=== PATIENT | female | born 1960 | race Caucasian/White ===

== ENCOUNTER 2017-08-23 22:44 | Observation (INO) | payer SELFPAY ==
[2017-08-23] MEDS ORDERED: ASPIRIN 81 MG CHEWABLE TABLET ONE (23:05)
[2017-08-23] MEDS ORDERED: FENTANYL CITR 100 MCG/2 ML ONE (23:05)
[2017-08-23 23:19] LABS: Absolute Lymphocytes (CBC) 4.1 K/uL (0.7-4.9); Absolute Monocytes 0.6 K/uL (0.1-1.3); Absolute Neutrophil 5.7 K/uL (1.8-8.0); Basophils % 0.5 % (0-1.3); Eosinophils % 1.2 % (0-4.4); Hematocrit 42.4 % (36.0-45.0); Lymphocytes % 38.8 % (15.3-44.8); MCV 85.5 fL (80-100); Monocytes % 5.5 % (3.3-12.3); RBC Red Blood Cell Count 4.96 M/uL (3.86-4.86)
[2017-08-23 23:22] LABS: Protime INR 0.97
[2017-08-23 23:26] LABS: Bicarbonate 28 mEq/L (21-31); Glucose Level 64 mg/dL (65-120); Potassium 3.6 mEq/L (3.6-5.0); Sodium Level 142 mEq/L (135-145)
[2017-08-23 23:32] LABS: ALT/SGPT 22 IU/L (10-60); AST/SGOT 22 IU/L (10-42); Albumin 4.5 g/dL (3.2-5.5); Alkaline Phosphatase 87 IU/L (42-121); BUN Blood Urea Nitrogen 19 mg/dL (6-20); Bilirubin Direct < 0.1 mg/dL (0-0.2); Bilirubin Total 0.4 mg/dL (0.3-1.2); Creatine Phosphokinase 83 IU/L (22-269); Magnesium 2.1 mg/dL (1.8-2.5); Protein, Total 7.8 g/dL (6.0-8.3)
[2017-08-23 23:35] LABS: CKMB Creatine Kinase MB 1.3 ng/ml (0.3-4.0)
--- NOTE | 2017-08-24 01:53 | EDPHYS ---
Physician Documentation [facility] Name: Yesenia Camacho Age: 57 yrs Sex: Female : 1960 Arrival Date: 08/23/2017 Time: 22:45 Bed 14 Private MD: ED Physician Scott Hunter HPI: 08/24 01:55 This 57 yrs old Female presents to ER via Ambulatory with complaints of Chest snw Pain > 30 y/o. 01:55 The patient or guardian reports chest pain that is located primarily in the anterior snw chest wall, left. Onset: suddenly. The pain radiates to the left arm. Associated signs and symptoms: Pertinent positives: nausea, palpitations. The chest pain is described as a pressure, squeezing. Duration: The patient or guardian reports a single episode, that is still ongoing. Severity of pain: At its worst the pain was incapacitating. The patient has not experienced similar symptoms in the past. The patient has not recently seen a physician, and does not have an established primary care provider. Historical: - Allergies: 08/23 22:58 Codeine; bb - Home Meds: 22:58 None [Active]; bb - PMHx: 22:58 gastric ulcer; hiatal hernia; Kidney stones; bb - PSHx: 22:58 Kidney stones removed; Lasik; Breast augmentation; Hysterectomy; lithotripsy; Tubal bb ligation; - Immunization history:: Adult Immunizations unknown. - Social history:: Smoking status: Patient/guardian denies using tobacco, Patient uses alcohol, but reports only rare drinking. Patient/guardian denies using street drugs. ROS: 08/24 01:55 Eyes: Negative for injury, pain, redness, and discharge, ENT: Negative for injury, snw pain, and discharge, Neck: Negative for injury, pain, and swelling. Back: Negative for injury and pain, : Negative for injury, bleeding, discharge, and swelling, MS/Extremity: Negative for injury and deformity, Skin: Negative for injury, rash, and discoloration, Neuro: Negative for headache, weakness, numbness, tingling, and seizure. Constitutional: Positive for fatigue, malaise. Cardiovascular: Positive for chest pain, palpitations. Respiratory: Positive for shortness of breath. Abdomen/GI: Positive for nausea. Exam: 08/23 23:08 Constitutional: This is a well developed, well nourished patient who is awake, alert, snw anxious and in mild acute distress. Head/Face: Normocephalic, atraumatic. Eyes: Pupils equal round and reactive to light, extra-ocular motions intact. Lids and lashes normal. Conjunctiva and sclera are non-icteric and not injected. Cornea within normal limits. Periorbital areas with no swelling, redness, or edema. ENT: Nares patent. No nasal discharge, no septal abnormalities noted. Tympanic membranes are normal and external auditory canals are clear. Oropharynx with no redness, swelling, or masses, exudates, or evidence of obstruction, uvula midline. Mucous membranes moist. Neck: Trachea midline, no thyromegaly or masses palpated, and no cervical lymphadenopathy. Supple, full range of motion without nuchal rigidity, or vertebral point tenderness. No Meningismus. Chest/axilla: Normal chest wall appearance and motion. Nontender with no deformity. No lesions are appreciated. Abdomen/GI: Soft, non-tender, with normal bowel sounds. No distension or tympany. No guarding or rebound. No evidence of tenderness throughout. Back: No spinal tenderness. No costovertebral tenderness. Full range of motion. Skin: Warm, dry with normal turgor. Normal color with no rashes, no lesions, and no evidence of cellulitis. MS/ Extremity: Pulses equal, no cyanosis. Neurovascular intact. Full, normal range of motion. Neuro: Awake and alert, GCS 15, oriented to person, place, time, and situation. Cranial nerves II-XII grossly intact. Motor strength 5/5 in all extremities. Sensory grossly intact. Cerebellar exam normal. Normal gait. Cardiovascular: Rate: tachycardic. Respiratory: hyperventilating. Vital Signs: 22:58 BP 118 / 85; Pulse 119; Resp 24 S; Temp 98.0(O); Pulse Ox 100% on R/A; Weight 77.11 kg bb (R); Height 5 ft. 5 in. (165.10 cm) (R); Pain 02/05; 08/24 00:14 BP 109 / 68; Pulse 83; Resp 15; Pulse Ox 95% on R/A; Pain 4/10; tl2 01:19 BP 111 / 74; Pulse 86; Resp 12; Pulse Ox 98% on R/A; tl2 02:42 BP 112 / 77; Pulse 77; Resp 18; Pulse Ox 94% on R/A; tl2 04:02 BP 110 / 70; Pulse 86; Resp 18; Pulse Ox 99% on R/A; tl2 08/23 22:58 Body Mass Index 28.29 (77.11 kg, 165.10 cm) bb MDM: 08/23 22:58 Patient medically screened. snw 08/24 01:53 HEART Score: History: Moderately Suspicious (1), ECG: Non specific repolarization snw disturbance / LBTB / PM (1), Age: > 45 and < 65 years (1), Risk Factors: No Risk Factors Known (0), Troponin: < or = 1 x Normal Limit (0). The patient was given aspirin in the Emergency Department. INGA Risk Score: 1 - Recent [<24hrs] Severe Angina. Data reviewed: vital signs, nurses notes, lab test result(s), EKG, radiologic studies. Data interpreted: Pulse oximetry: on room air is 100 %. Interpretation: normal. Counseling: I had a detailed discussion with the patient and/or guardian regarding: the historical points, exam findings, and any diagnostic results supporting the discharge/admit diagnosis, lab results, radiology results, the need for further work-up and treatment in the hospital. Physician consultation: Ana Kimble MD was called at 01:54, was contacted at 01:54, regarding admission, to the telemetry unit. patient's condition. 08/23 22:53 Order name: Basic Metabolic Panel; Complete Time: 23:36 w 08/23 22:53 Order name: BNP; Complete Time: 23:48 w 08/23 22:53 Order name: CBC with Diff; Complete Time: 23:23 w 08/23 22:53 Order name: Ckmb; Complete Time: 23:36 snw 08/23 22:53 Order name: CPK; Complete Time: 23:36 w 08/23 22:53 Order name: LFT's; Complete Time: 23:36 w 08/23 22:53 Order name: Magnesium; Complete Time: 23:36 w 08/23 22:53 Order name: PT-INR; Complete Time: 23:23 snw 08/23 22:53 Order name: Ptt, Activated; Complete Time: 23:23 08/23 22:53 Order name: Troponin (emerg Dept Use Only); Complete Time: 23:36 w 08/23 22:53 Order name: XRAY Chest (1 view) w 08/23 22:53 Order name: CT Chest For PE Angio 08/23 22:53 Order name: EKG; Complete Time: 22:53 08/23 22:53 Order name: Cardiac monitoring; Complete Time: 23:02 08/23 22:53 Order name: EKG - Nurse/Tech; Complete Time: 23:02 08/23 22:53 Order name: IV Saline Lock; Complete Time: 23:02 08/23 22:53 Order name: Labs collected and sent; Complete Time: 23:02 w 08/23 22:53 Order name: O2 Per Protocol; Complete Time: 23:02 08/23 22:53 Order name: O2 Sat Monitoring; Complete Time: 23:02 08/23 23:38 Order name: PO challenge; Complete Time: 23:42 snw 08/24 01:22 Order name: EKG; Complete Time: 01:22 snw Administered Medications: 08/23 23:22 Drug: Aspirin Chewable Tablet 324 mg Route: PO; tl2 08/24 04:12 Follow up: Response: No adverse reaction tl2 08/23 23:22 Drug: fentaNYL (PF) 50 mcg Route: IVP; Site: right antecubital; tl2 08/24 00:00 Follow up: Response: No adverse reaction; Pain is decreased tl2 02:42 Drug: fentaNYL (PF) 50 mcg Route: IVP; Site: right antecubital; tl2 04:12 Follow up: Response: No adverse reaction; Pain is decreased tl2 Disposition: 08/24/17 01:52 Hospitalization ordered by Ana Kimble for Observation. Preliminary diagnosis is Chest pain, unspecified. - Bed requested for Telemetry/MedSurg (observation). - Status is Observation. tl2 - Condition is Stable. - Problem is new. - Symptoms are unchanged. UTI on Admission? No Addendum: 08/28/2017 06:43 Co-signature as Attending Physician, Scott Hunter MD Available for consultation at p s1 all times. . Signatures: Dispatcher [employer] Ashley Land RN RN mw Rosita Paris, SENIOR CYBER SECURITY ANALYST-C SENIOR CYBER SECURITY ANALYST-Csnw Birdie Griggs RN RN bb Lillian Ryan RN RN tl2 Scott Hunter MD MD ps1
--- NOTE | 2017-08-24 01:53 | ER ---
Nurse's Notes [facility] Name: Yesenia Camacho Age: 57 yrs Sex: Female : 1960 Arrival Date: 08/23/2017 Time: 22:45 Bed 14 Private MD: Diagnosis: Chest pain, unspecified Presentation: 08/23 22:55 Presenting complaint: Patient states: about an hour ago she started having sharp pain bb in her chest radiating to her left arm and up into her neck, pain feels like an 18 motta sitting on her chest she has SOB and nausea. Transition of care: patient was not received from another setting of care. Onset of symptoms was August 23, 2017. Initial Sepsis Screen: Does the patient meet any 2 criteria? No. Patient's initial sepsis screen is negative. Does the patient have a suspected source of infection? No. Patient's initial sepsis screen is negative. 22:55 Method Of Arrival: Ambulatory bb 22:55 Acuity: MIGUELANGEL 3 bb 08/24 00:17 Care prior to arrival: None. tl2 Historical: - Allergies: 08/23 22:58 Codeine; bb - Home Meds: 22:58 None [Active]; bb - PMHx: 22:58 gastric ulcer; hiatal hernia; Kidney stones; bb - PSHx: 22:58 Kidney stones removed; Lasik; Breast augmentation; Hysterectomy; lithotripsy; Tubal bb ligation; - Immunization history:: Adult Immunizations unknown. - Social history:: Smoking status: Patient/guardian denies using tobacco, Patient uses alcohol, but reports only rare drinking. Patient/guardian denies using street drugs. Screenin/28 00:15 Abuse screen: Denies threats or abuse. Nutritional screening: No deficits noted. tl2 Tuberculosis screening: No symptoms or risk factors identified. Fall Risk None identified. Assessment: 08/23 23:00 General: Appears distressed, uncomfortable, Behavior is anxious. Pain: Complains of tl2 pain in chest Pain radiates to left arm, neck Pain currently is 10 out of 10 on a pain scale. Quality of pain is described as pressure, Pain began 30 min ago. Neuro: Level of Consciousness is awake, alert, obeys commands, Oriented to person, place, time, situation. Cardiovascular: Reports chest pain, nausea, shortness of breath, Rhythm is sinus rhythm Chest pain is described as severe, quality is pressure, radiates to left arm(s) neck. Respiratory: Airway is patent Respiratory effort is even, unlabored, Respiratory pattern is tachypnea Breath sounds are clear bilaterally. GI: Reports nausea. : No signs and/or symptoms were reported regarding the genitourinary system. Derm: Skin is pink, warm \T\ dry. 08/24 00:15 Reassessment: Patient appears in no apparent distress at this time. Patient and/or tl2 family updated on plan of care and expected duration. Pain level reassessed. Patient is alert, oriented x 3, equal unlabored respirations, skin warm/dry/pink. pt given sandwich and drink due to BGL of 64 Patient states symptoms have improved. 01:19 Reassessment: Patient appears in no apparent distress at this time. Patient and/or tl2 family updated on plan of care and expected duration. Pain level reassessed. Pt resting, no complaints or concerns at this time Patient states feeling better. 02:30 Reassessment: Patient appears in no apparent distress at this time. Patient and/or tl2 family updated on plan of care and expected duration. Pain level reassessed. Patient is alert, oriented x 3, equal unlabored respirations, skin warm/dry/pink. 04:02 Reassessment: Patient appears in no apparent distress at this time. Patient and/or tl2 family updated on plan of care and expected duration. Pain level reassessed. Patient is alert, oriented x 3, equal unlabored respirations, skin warm/dry/pink. Pt stable and ready for transport to floor. Vital Signs: 08/23 22:58 BP 118 / 85; Pulse 119; Resp 24 S; Temp 98.0(O); Pulse Ox 100% on R/A; Weight 77.11 kg bb (R); Height 5 ft. 5 in. (165.10 cm) (R); Pain 10/10; 08/24 00:14 BP 109 / 68; Pulse 83; Resp 15; Pulse Ox 95% on R/A; Pain 4/10; tl2 01:19 BP 111 / 74; Pulse 86; Resp 12; Pulse Ox 98% on R/A; tl2 02:42 BP 112 / 77; Pulse 77; Resp 18; Pulse Ox 94% on R/A; tl2 04:02 BP 110 / 70; Pulse 86; Resp 18; Pulse Ox 99% on R/A; tl2 08/23 22:58 Body Mass Index 28.29 (77.11 kg, 165.10 cm) bb Vitals: 00:14 Cardiac Rhythm Assessment Sinus rhythm. tl2 ED Course: 08/23 22:45 Patient arrived in ED. am2 22:52 Rosita Paris FNP-C [facility]. snw 22:52 Scott Hunter MD is Attending Physician. snw 22:52 Lillian Ryan RN is Primary Nurse. tl2 22:53 Inserted saline lock: 20 gauge in right antecubital area, using aseptic technique. tl2 Blood collected. 22:57 Triage completed. bb 22:58 Arm band placed on Patient placed in an exam room, on a stretcher, on groundwater monitoring technician, bb on pulse oximetry. EKG completed in triage. Results shown to MD. 23:11 X-ray completed. Portable x-ray completed in exam room. Patient tolerated procedure kc2 well. 23:59 XRAY Chest (1 view) In Process Unspecified. EDMS 08/24 00:12 CT Chest For PE Angio In Process Unspecified. EDMS 00:15 No provider procedures requiring assistance completed. Patient maintains SpO2 tl2 saturation greater than 95% on room air. 00:15 Patient has correct armband on for positive identification. Bed in low position. Call tl2 light in reach. Side rails up X 1. cafeteria monitor on. Pulse ox on. NIBP on. 01:52 Ana Kimble MD is Hospitalizing Provider. snw 04:02 Patient admitted, IV remains in place. tl2 Administered Medications: 08/23 23:22 Drug: Aspirin Chewable Tablet 324 mg Route: PO; tl2 08/24 04:12 Follow up: Response: No adverse reaction tl2 08/23 23:22 Drug: fentaNYL (PF) 50 mcg Route: IVP; Site: right antecubital; tl2 08/24 00:00 Follow up: Response: No adverse reaction; Pain is decreased tl2 02:42 Drug: fentaNYL (PF) 50 mcg Route: IVP; Site: right antecubital; tl2 04:12 Follow up: Response: No adverse reaction; Pain is decreased tl2 Outcome: 01:52 Decision to Hospitalize by Provider. snw 04:02 Admitted to Med/surg accompanied by barb via wheelchair, room 216, with chart, Report tl2 called to CHRISSIE Beaver 04:02 Condition: stable 04:02 Discharge instructions given to patient, Instructed on the need for admit. 04:13 Patient left the ED. tl2 Signatures: Dispatcher [employer] EDMS Rosita Paris, SALES PRODUCT SPECIALIST-C SALES PRODUCT SPECIALIST-Csnw Birdie Griggs RN RN bb Carr, Kelsie 2 Lillian Ryan RN RN tl2 Monique Morales am2
[2017-08-24] MEDS ORDERED: MORPHINE 4 MG/ML SYR IV PRN (03:09)
[2017-08-24] MEDS ORDERED: ACETAMINOPHEN 500 MG TAB PO PRN (03:09)
[2017-08-24] MEDS ORDERED: ALPRAZOLAM 0.25 MG TABLET PO PRN (03:09)
[2017-08-24] MEDS ORDERED: HYDROCODONE/APAP 10/325 TAB PO PRN (04:06)
[2017-08-24] MEDS: TRAMADOL 37.5mg/APAP 325mg PER TAB PO PRN ×2 (04:29→10:16)
[2017-08-24 05:06] VITALS: O2SAT 97; BMI 29.9
--- NOTE | 2017-08-24 08:37 | P.HP ---
Certification for Inpatient Patient admitted to: Observation With expected LOS: <2 Midnights Patient will require the following post-hospital care: None Practitioner: I am a practitioner with admitting privileges, knowledge of patient current condition, hospital course, and medical plan of care. Services: Services provided to patient in accordance with Admission requirements found in Title 42 Section 412.3 of the Code of Federal Regulations Patient History Date of Service: 08/24/17 Reason for admission: Chest pain rule out acute coronary syndrome History of Present Illness: Patient is a 57-year-old female who presents to the hospital with sudden chest pain. The pain was in the sternal region but radiated to the left side of her arm. She has some nausea and shortness of breath. Patient has a history of heartburn but this is not what this pain felt like. 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 She has been working quite a bit and has had a lot of stress lately. The chest pain was sudden so she came into the hospital to be evaluated. In the emergency room her EKG and troponins were negative. She will be admitted to the hospital for further evaluation. Allergies codeine Allergy (Verified 08/24/17 04:46) Nausea/Vomiting Home Medications: Fluticasone [Flonase 50mcg Nasal Everly] 1 spray NS BID 08/24/17 - Past Medical/Surgical History Has patient received pneumonia vaccine in the past: No Diabetic: No -: hiatal hernia -: gastric ulcer -: kidney stones -: kidney stones removed -: Lasik -: breast augmentation -: hysterectomy -: lithotripsy -: tubal ligation - Family History Father Family History: Reviewed- Non-Contributory - Social History Smoking Status: Never smoker Alcohol use: No CD- Drugs: No Caffeine use: Yes Place of Residence: Home Review of Systems 10-point ROS is otherwise unremarkable Physical Examination - Vital Signs Temperature: 96.9 F Blood Pressure: 109/55 Pulse: 80 Respirations: 16 Pulse Ox (%): 98 - Physical Exam General: Alert, In no apparent distress, Oriented x3 HEENT: Atraumatic, PERRLA, Mucous membr. moist/pink, EOMI, Sclerae nonicteric Neck: Supple, 2+ carotid pulse no bruit, No LAD, Without JVD or thyroid abnormality Respiratory: Clear to auscultation bilaterally, Normal air movement Cardiovascular: Regular rate/rhythm, Normal S1 S2, No murmurs Gastrointestinal: Normal bowel sounds, Soft and benign, Non-distended, No tenderness Musculoskeletal: No clubbing, No swelling, No tenderness Integumentary: No rashes Neurological: Normal gait, Normal speech, Normal strength at 5/5 x4 extr, Normal tone, Sensation intact, Cranial nerves 3-12 intact, Normal affect Lymphatics: No axilla or inguinal lymphadenopathy - Studies Laboratory Data (last 24 hrs) 08/23/17 22:50: PT 11.4, INR 0.97, APTT 27.4 08/23/17 22:50: WBC 10.5, Hgb 13.9, Hct 42.4, Plt Count 314 08/23/17 22:50: B-Natriuretic Peptide < 10 08/23/17 22:50: Sodium 142, Potassium 3.6, BUN 19, Creatinine 0.97, Glucose 64 L , Magnesium 2.1, Total Bilirubin 0.4, AST 22, ALT 22, Alkaline Phosphatase 87 Assessment & Plan - Problems (Diagnosis) (1) Chest pain, rule out acute myocardial infarction Current Visit: Yes Status: Acute (2) Diabetes type 2, controlled Current Visit: Yes Status: Acute (3) Hypertension Current Visit: Yes Status: Acute - Plan 1. Serial troponins and EKG 2. Cardiology consultation 3. Echocardiogram and outpatient stress test(pending cardiology evaluation) 4. Anti-platelet therapy, anti coagulation, beta-marilynn, statin, and O2 as needed 5. IV morphine for pain 6. Nitro p.r.n. Discharge Plan: Home Plan to discharge in: 24 Hours - Advance Directives Does patient have a Living Will: No Does patient have a Durable POA for Healthcare: No - Code Status/Comfort Care Code Status Assessed: Yes Code Status: Full Code Critical Care: No Time Spent Managing PTS Care (In Minutes): 50
[2017-08-24] MEDS ORDERED: LISINOPRIL 10 MG TAB PO SCH (09:00)
[2017-08-24] MEDS ORDERED: ASPIRIN EC 81 MG TAB PO SCH (09:00)
[2017-08-24] MEDS ORDERED: METOPROLOL TAR 50 MG TAB PO SCH (09:00)
[2017-08-24 10:28] LABS: Urine Appearance CLEAR; Urine Bilirubin NEGATIVE (NEG); Urine Blood NEGATIVE (NEG); Urine Color YELLOW; Urine Glucose NEGATIVE (NEG); Urine Protein NEGATIVE (NEG); Urine Specific Gravity >=1.030 (1.005-1.030); Urine Urobilinogen 0.2 mg/dL (0.2-1.0); Urine pH 5.5 (5.0-7.0)
--- NOTE | 2017-08-24 10:39 | RAD REPORT ---
EXAM DESCRIPTION: CT - Chest For Pe Angio - 08/24/2017 4:40 am CLINICAL HISTORY: Chest pain. COMPARISON: None. TECHNIQUE: CT angiogram of the pulmonary arteries was performed with MIP. All CT scans are performed using dose optimization technique as appropriate and may include automated exposure control or mA/KV adjustment according to patient size. FINDINGS: No evidence of pulmonary thromboembolism. No acute aortic finding demonstrated. The lungs are clear. No significant pericardial or pleural fluid. No concerning bony finding. Fatty liver. Small hiatal hernia. IMPRESSION: No evidence of pulmonary thromboembolism. No acute lung findings.
[2017-08-24 10:43] LABS: Urine Microscopic Reflex NO UMIC
--- NOTE | 2017-08-24 10:53 | RAD REPORT ---
EXAM DESCRIPTION: RAD - Chest Single View - 08/23/2017 11:59 pm CLINICAL HISTORY: Chest pain. COMPARISON: None. FINDINGS: Portable technique limits examination quality. The lungs are underinflated but grossly clear. The heart is normal in size. No displaced fractures. IMPRESSION: No acute intrathoracic process suspected.
[2017-08-24 13:00] VITALS: BP 116/68; TEMP 97.6
--- NOTE | 2017-08-24 15:05 | PN ---
Date of Progress Note: 08/24/2017 Subjective: The patient seen and examined. Chart reviewed and case discussed with RN. 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 The patient does report pinpoint chest wall pain as well. Review of Systems: Negative except as above. Medications: Reviewed. Physical Examination: Vital Signs: Temperature 96.9, heart rate 80, blood pressure 109/55, respirations 16, O2 98% on room air. General: Awake, alert, oriented x3. Some mild distress, anxious female. CV: S1, S2. Regular rate and rhythm. Peripheral pulses present. No murmurs. Respiratory: Clear to auscultation bilaterally. No wheezing. Gastrointestinal: Abdomen is soft, nontender, and nondistended. Positive bowel sounds. Extremities: No clubbing, cyanosis, edema. Neurologic: Nonfocal. Laboratory Data: Troponin less than 0.03 x3. Triglycerides 175, cholesterol 157, LDL 90, HDL 32. Assessment And Plan: A 57-year-old female with: 1.Chest pain. Acute coronary syndrome has been ruled out. We will follow up with Cardiology recomm endations. Troponins are negative. The patient currently on chest pain guidelines. CT angio chest negative for pulmonary embolism. The patient does report some musculoskeletal pain, may be atypical. 2.Musculoskeletal chest wall pain. 3.Generalized anxiety disorder. We will start on anxiolytics. 4.Diabetes mellitus type 2 without long-term use of insulin. We will continue with sliding scale in sulin and check hemoglobin A1c. 5.Essential hypertension, stable. Resume home medications as appropriate. Plan: Follow up with Cardiology recommendations and echocardiogram. /MONIKA Voice ID: [id number] Report ID: [id number]
--- NOTE | 2017-08-24 16:28 | CON ---
The patient admitted on 08/24/[address] Berumen for chest pain. History Of Present Illness: Ms. Camacho is 57, has no significant past cardiac history. She has a hi story of peptic ulcer disease, hiatal hernia, and nephrolithiasis. Had a hysterectomy in the past, t ubal ligation and breast augmentation. Apparently is under a lot of stress at work. She had been on the road for about a month between [place] and [place]. 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 All the way back from [place] apparently developed left shoulder, chest pain and numbness and then the numbness was in the arm and the legs bilaterally. She felt that she was h yperventilating, did not have any nausea or vomiting but had diaphoresis, shortness of breath. Sympt oms are still continuing now, that has been hours now but yet her EKG is normal and chest x-ray is no rmal. Her CPKs, MBs, troponin and BNP are normal. Her pain has improved with fentanyl. Allergies: SHE IS ALLERGIC TO CODEINE. Review of Systems: Negative. Social History: Negative for tobacco. Family History: Negative for heart disease. Her daughter has Graves disease and atrial arrhythmias. Medications: Medications at home are none. Physical Examination: Vital Signs: Stable. She was afebrile. She was slightly anxious, remains in pain. Pain was 7/10. HEENT: Negative. Neck: Supple. No bruit. Chest: Clear. Cardiac exam: Revealed a regular rhythm and rate without any murmurs, gallops, or rubs. Abdomen: Benign. Extremities: Revealed no clubbing, cyanosis, or edema. Diagnostic Data: As stated earlier. Impression And Plan: 1.Atypical chest pain, most likely gastric in origin. 2.Numbness in the hands and arms and legs are probably secondary to hyperventilation and not a cardi ac issue. 3.History of peptic ulcer disease, hiatal hernia, and nephrolithiasis. From my standpoint, Ms. Gustavo sidhu can get some medication for pain control, maybe some anxiety medication because of her stress leve l, but from my standpoint she can go home and have an outpatient cardiac workup at least a stress virgie t. All her blood work so far is negative. Considering the symptoms that have been going on for hour s, but yet we do not see anything on the EKG or troponin, makes me more comfortable believing this is a noncardiac issue. JOEL/MONIKA Voice ID: [id number] Report ID: [id number]
[2017-08-24] MEDS ORDERED: FLUTICASONE 50MCG NASAL SPRAY NAS SCH (21:00)
--- NOTE | 2017-08-25 16:08 | P.DS ---
Admission Date: 08/24/17 Discharge Date: 08/24/17 Disposition: ROUTINE DISCHARGE Discharge Condition: GOOD Reason for Admission: Chest pain rule out acute coronary syndrome Consultations: Cardiology Dr. Le - Problems (1) Chest pain, rule out acute myocardial infarction Status: Acute (2) Diabetes type 2, controlled Status: Acute (3) Hypertension Status: Acute Brief History of Present Illness: From H and P Patient is a 57-year-old female who presents to the hospital with sudden chest pain. The pain was in the sternal region but radiated to the left side of her arm. She has some nausea and shortness of breath. Patient has a history of heartburn but this is not what this pain felt like. 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 She has been working quite a bit and has had a lot of stress lately. The chest pain was sudden so she came into the hospital to be evaluated. In the emergency room her EKG and troponins were negative. She will be admitted to the hospital for further evaluation. Hospital Course: Patient is a 57-year-old female who was admitted to the hospital for chest pain rule out ACS. ACS was ruled out. Patient was seen by cardiology and was recommended to have an outpatient stress test. Patient does report said significant amount of anxiety related to her recent business. 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 Patient had a CT angio done which was negative for PE. Patient was given medication for anxiety and her symptoms improved. Patient did have some point tenderness which suggested musculoskeletal type chest pain. Patient was cleared for discharge from cardiology standpoint and was sent home in a stable condition to follow up with Cardiology for outpatient stress test. She was started on BusPar for her anxiety patient is to follow up with the PCP to titrate the dose of BusPar. Patient also reports history of gastric ulcer however has not been taking any PPI. Patient was given prescription for pantoprazole 1 month trial. Patient will need to follow up with GI for scope to insure no further ulceration or other abnormalities such as malignancy Vital Signs/Physical Exam: Temp Pulse Resp BP Pulse Ox 97.6 F 84 16 116/68 96 08/24/17 12:00 08/24/17 12:00 08/24/17 12:00 08/24/17 12:00 08/24/17 12:00 Other Physical/Emotional Findings: PLEASE SEE PROGRESS NOTE DICTATED ON THE DAY OF DISCHARGE FOR PHYSICAL EXAM FINDINGS Laboratory Data at Discharge: WBC 10.5 K/uL (4.3-10.9) 08/23/17 22:50 Hgb 13.9 g/dL (12.0-15.0) 08/23/17 22:50 Hct 42.4 % (36.0-45.0) 08/23/17 22:50 Plt Count 314 K/uL (152-406) 08/23/17 22:50 PT 11.4 SECONDS (9.5-12.5) 08/23/17 22:50 INR 0.97 08/23/17 22:50 APTT 27.4 SECONDS (24.3-36.9) 08/23/17 22:50 Sodium 142 mEq/L (135-145) 08/23/17 22:50 Potassium 3.6 mEq/L (3.6-5.0) 08/23/17 22:50 BUN 19 mg/dL (6-20) 08/23/17 22:50 Creatinine 0.97 mg/dL (0.44-1.00) 08/23/17 22:50 Glucose 64 mg/dL (65-120) L 08/23/17 22:50 Magnesium 2.1 mg/dL (1.8-2.5) 08/23/17 22:50 Total Bilirubin 0.4 mg/dL (0.3-1.2) 08/23/17 22:50 AST 22 IU/L (10-42) 08/23/17 22:50 ALT 22 IU/L (10-60) 08/23/17 22:50 Alkaline Phosphatase 87 IU/L (42-121) 08/23/17 22:50 Troponin I < 0.03 ng/mL (<0.03) 08/24/17 09:57 B-Natriuretic Peptide < 10 pg/ml (<=100) 08/23/17 22:50 Triglycerides 175 mg/dL (35-160) H 08/24/17 06:00 Cholesterol 157 mg/dL (<200) 08/24/17 06:00 HDL Cholesterol 32 mg/dL (29-89) 08/24/17 06:00 Cholesterol/HDL Ratio 4.91 08/24/17 06:00 Home Medications: Buspirone HCl [Buspar] 7.5 mg PO BID #60 tab 08/24/17 Fluticasone [Flonase 50MCG Nasal [place]*] 1 spray NS BID 08/24/17 Pantoprazole [Protonix Tab*] 40 mg PO DAILY #30 tab 08/24/17 New Medications: Buspirone HCl [Buspar] 7.5 mg PO BID #60 tab Pantoprazole [Protonix Tab*] 40 mg PO DAILY #30 tab Patient Discharge Instructions: f/up w PCP in 2-3 days. f/up w plant breeder scientist Dr. eL in 4 weeks. Return to ER for worsening condition Diet: AHA Activity: Ad bertha Followup: Esau Le MD [ACTIVE - CAN ADMIT] - (Call for appointment)
--- NOTE | 2017-08-25 16:13 | EKG ---
Test Date: 2017-08-24 Test Time: 01:52:24 Senior Information Security Engineer: RIAN MEASUREMENT RESULTS: Intervals: Rate: 80 MN: 162 QRSD: 90 QT: 396 QTc: 456 [place]: P: 45 MN: 162 QRS: 7 T: 15 INTERPRETIVE STATEMENTS: Normal sinus rhythm Normal ECG Compared to ECG 08/23/2017 22:49:22 Sinus tachycardia no longer present Myocardial infarct finding no longer present Electronically Signed On 08-25-17 16:12:17 CDT by Yair Cruz
--- NOTE | 2017-08-25 16:14 | EKG ---
Test Date: 2017-08-23 Test Time: 22:49:22 [employer]ed Circuit Layout Taper: FLAQUITO MEASUREMENT RESULTS: Intervals: Rate: 120 ND: 142 QRSD: 80 QT: 330 QTc: 466 [place]: P: 49 ND: 142 QRS: 1 T: 33 INTERPRETIVE STATEMENTS: Sinus tachycardia Anormal ECG Compared to ECG 10/11/2016 09:57:34 Sinus rhythm no longer present Electronically Signed On 08-25-17 16:13:50 CDT by Yair Cruz
== END 2017-08-24 14:32 | disposition home or self-care (01) ==
LOC: ER 22:44 → ERHOLD 08-24 02:10 → 2ND 08-24 03:46
PROVIDERS: ADMIT Hospitalist; ATTEND Hospitalist
DX: R07.9 Chest pain, unspecified (principal); E11.9 Type 2 diabetes mellitus without complications; I10 Essential (primary) hypertension; F41.9 Anxiety disorder, unspecified; Z87.442 Personal history of urinary calculi
CPT/HCPCS: 36415; 71045; 71275; 80048; 80061; 80076; 81003; 82550; 82553; 83735; 83880; 84484; 85025; 85610; 85730; 93005; 96374; 99285; G0378; J3010; Q9967